=== PATIENT | female | born 1970 | race African-American/Black ===

== ENCOUNTER 2024-10-29 13:38 | Emergency (ER) | payer SELFPAY ==
[~2024-10-29] VITALS: Ht 170.2 cm; Wt 126.0 kg
[2024-10-29 13:43] VITALS: O2SAT 97
[2024-10-29 13:51] VITALS: BP 158/98; PULSE 56; RESP 16; TEMP 36.9; O2SAT 99
[2024-10-29] MEDS ORDERED: DEXT1TAB65 MT (15:19)
[2024-10-29] MEDS ORDERED: GUAI200T5 MT (15:20)
[2024-10-29] MEDS: DEXAMETHASONE 1 MG/ML ORAL SYR PO ONE (15:39)
[2024-10-29] MEDS: IBUPROFEN 400MG TABLET PO ONE (15:40)
== END 2024-10-29 15:43 | disposition home or self-care (01) ==
LOC: ER 13:38
DX: R05.9 Cough, unspecified (principal); I10 Essential (primary) hypertension; Z90.49 Acquired absence of other specified parts of digestive tract; Z20.822 Contact with and (suspected) exposure to COVID-19
CPT/HCPCS: 71045; 81025; 87426; 99284; J8540